=== PATIENT | female | born 1995 | race African-American/Black ===

== ENCOUNTER 2019-04-12 20:15 | Emergency (ER) | payer BC ==
[2019-04-12 20:46] LABS: Urine Appearance Clear; Urine Bacteria 1+ (Absent); Urine Bilirubin Negative (Negative); Urine Blood 2+ (Negative); Urine Color Yellow; Urine Glucose Negative (Negative); Urine Ketones Negative (Negative); Urine Nitrite Negative (Negative); Urine Protein Negative (Negative); Urine Red Blood Cell 2+(6-10/hpf) (Absent); Urine Specific Gravity 1.009 (1.010-1.030); Urine Squamous Epithelial Cell Present (Absent); Urine Urobilinogen Negative (Negative); Urine White Blood Cell Trace(0-5/hpf) (Absent)
[2019-04-12] MEDS ORDERED: Ketorolac INJ* 30 MG/ML 1 ML VIAL IV ONE (22:42)
[2019-04-12] MEDS ORDERED: NS 0.9% 1000 ML** 1,000 ML IV ONE (22:42)
--- NOTE | 2019-04-12 22:49 | ED ---
GI/ HPI - HPI Summary HPI Summary: This patient is a 23 year old F with a hx of PCOS presenting to ED with a chief complaint of bilateral flank pain since 3 days ago. Patient reports hematuria on 04/08/19 and dysuria. She reports bilateral flank pain. No PMHx of kidney stones, but FHx of kidney stones. Patient had similar pain two years ago when she was taking an oral medication for BV. The patient rates the pain 8/10 in severity. Patient denies vomiting, fever, abnormal vaginal bleeding/discharge, or pelvic pain. Patients last period was on 03/24/19. She is on control. - History of Current Complaint Chief Complaint: EDUrogenitalProblems Time Seen by Provider: 04/12/19 22:15 Stated Complaint: KIDNEY PAIN PER PT Hx Obtained From: Patient Onset/Duration: Started Days Ago - 3 days ago, Still Present Timing: Constant, Lasting Days - Since 3 days ago Severity: Severe Current Severity: Severe Pain Intensity: 8 Location of Pain: Flank - Bilateral Associated Signs and Symptoms: Positive: Hematuria, Flank Pain. Negative: Vomiting, Fever Additional Signs & Symptoms: Negative: Vaginal Bleeding, Vaginal Discharge Aggravating Factor(s): Nothing Alleviating Factor(s): Nothing - Allergy/Home Medications Allergies/Adverse Reactions: Allergies Allergy/AdvReac Type Severity Reaction Status Date / Time No Known Allergies Allergy Verified 04/12/19 20:21 PMH/Surg Hx/FS Hx/Imm Hx Endocrine/Hematology History: Reports: Hx Diabetes, Hx Thyroid Disease History: Reports: Other Problems/Disorders - PCOS Denies: Hx Kidney Stones - Surgical History Surgery Procedure, Year, and Place: denies Infectious Disease History: No Infectious Disease History: Denies: Traveled Outside the [place] in Last 30 Days - Family History Known Family History: Positive: Diabetes, Renal Disease - Kidney stones - Social History Alcohol Use: None Hx Substance Use: No Substance Use Type: Reports: None Hx Tobacco Use: No Smoking Status (MU): Never Smoked Tobacco Review of Systems Negative: Fever Negative: Vomiting Genitourinary: Negative - Abnormal vaginal bleeding/discharge Positive: flank pain, hematuria All Other Systems Reviewed And Are Negative: Yes Physical Exam - Summary Physical Exam Summary: Constitutional: Well-developed, Well-nourished, Alert. (-) Distressed Skin: Warm, Dry HENT: Normocephalic; Atraumatic Eyes: Conjunctiva normal Neck: Musculoskeletal ROM normal neck. (-) JVD, (-) Stridor, (-) Nuchal rigidity Cardio: Rhythm regular, tachycardic; Intact distal pulses; Radial pulses are 2+ and symmetric (-) Murmur Pulmonary/Chest wall: Effort normal. (-) Respiratory distress, (-) Wheezes, (-) Rales Abd: Flank tenderness left greater than right Musculoskeletal: (-) Edema Lymph: (-) Cervical adenopathy Neuro: Alert, Oriented x3 Psych: Mood and affect Normal Triage Information Reviewed: Yes Vital Signs On Initial Exam: Initial Vitals Temp Pulse Resp BP Pulse Ox 98.0 F 119 18 131/79 98 04/12/19 20:18 04/12/19 20:18 04/12/19 20:18 04/12/19 20:18 04/12/19 20:18 Vital Signs Reviewed: Yes Diagnostics - Vital Signs Vital Signs Temp Pulse Resp BP Pulse Ox 04/12/19 20:18 98.0 F 119 18 131/79 98 - Laboratory Lab Results: Lab Results 04/12/19 Range/Units 20:28 Urine Color Yellow Urine Appearance Clear Urine pH 6.0 (5-9) Ur Specific [place] 1.009 L (1.010-1.030) Urine Protein Negative (Negative) Urine Ketones Negative (Negative) Urine Blood 2+ A (Negative) Urine Nitrate Negative (Negative) Urine Bilirubin Negative (Negative) Urine Urobilinogen Negative (Negative) Ur Leukocyte Esterase Trace A (Negative) Urine WBC (Auto) Trace(0-5/hpf) (Absent) Urine RBC (Auto) 2+(6-10/hpf) A (Absent) Ur Squamous Epith Cells Present A (Absent) Urine Bacteria 1+ A (Absent) Urine Glucose Negative (Negative) Result Diagrams: 04/12/19 22:51 04/12/19 22:51 Lab Statement: Any lab studies that have been ordered have been reviewed, and results considered in the medical decision making process. - CT A/P CT Interpretation Completed By: Radiologist Summary of CT Findings: No CT findings to correlate with patient's symptomatology. Specifically no obstructing renal or ureteral calculi. Dr. Harry has reviewed this radiology report. Re-Evaluation - Re-Evaluation First Eval Change: Improved - HR down to 90. CT scan w no evidence of kidney stone or pyelonephritis, will discharge on Keflex twice a day for 5 days GIGU Course/Dx - Course Course Of Treatment: 22-year-old female who presents with dysuria and bilateral flank pain. - Physical exam with right flank pain, VS mild tachycardia, afebrile. Check labs including a CBC to assess for infection, urinalysis, . Patient has a family history of kidney stones unsure if she has had any, given the hematuria on her labs, concern for stone versus infection. UA w trace LE, WBC 13. Check a CT scan to rule out kidney stone, if negative will be discharged home on antibiotics for UTI. - Diagnoses Provider Diagnoses: UTI (urinary tract infection) Discharge ED - Sign-Out/Discharge Documenting (check all that apply): Patient Departure - Discharge Patient Received Moderate/Deep Sedation with Procedure: No - Discharge Plan Condition: Stable Disposition: HOME Prescriptions: Cephalexin CAP* [Keflex CAP*] 500 mg PO BID 5 Days #10 cap Patient Education Materials: Dysuria (ED) Referrals: Care [facility] [Outside] Additional Instructions: You were seen in the emergency department for flank pain and dysuria. Your CT scan did not show any evidence of kidney stones or kidney infection. Please take Keflex twice a day for 5 days. If any studies were not completed at the time of discharge you will be called with the relevant results. Please follow up with your primary care doctor in next 2-3 days and return to emergency department for worsening or concerning symptoms. - Billing Disposition and Condition Condition: STABLE Disposition: Home - Attestation Statements Document Initiated by Shana: Yes Documenting Scribe: Dennis Terry Provider For Whom Shana is Documenting (Include Credential): Jaymie Harry MD Scribe Attestation: IDennis, scribed for Jaymie Harry MD on 04/13/19 at 0203. Scribe Documentation Reviewed: Yes Provider Attestation: The documentation as recorded by the Dennis clarke accurately reflects the service I personally performed and the decisions made by me, Jaymie Harry MD Status of Scribe Document: Viewed
[2019-04-12 23:00] LABS: ABS Basophils 0.1 10^3/ul (0-0.2); ABS Eosinophils 0.1 10^3/ul (0-0.6); ABS Lymphocytes 4.6 10^3/ul (1.0-4.8); ABS Monocytes 0.7 10^3/ul (0-0.8); ABS Neutrophils 7.8 10^3/ul (1.5-7.7); Hematocrit 36 % (35-47); Hemoglobin 12.2 g/dL (12.0-16.0); Lymphocyte % 34.4 %; Mean Corpuscular HGB Conc 34 g/dL (31-36); Mean Corpuscular Hemoglobin 29 pg (27-31); Mean Corpuscular Volume 87 fL (80-97); Mean Platelet Volume 7.7 fL (7.4-10.4); Platelet Count 425 10^3/uL (150-450); Red Blood Count 4.18 10^6 /uL (3.70-4.87); Red Cell Distribution Width 15 % (10-15); White Blood Count 13.4 10^3/uL (3.5-10.8)
[2019-04-12 23:18] LABS: ALT 12 U/L (7-52); Albumin/Globulin Ratio 1.5 (1-3); Alkaline Phosphatase 70 U/L (34-104); BUN/Creatinine Ratio 8.3 (8-20); Blood Urea Nitrogen 7 mg/dL (6-24); CO2 Carbon Dioxide 28 mmol/L (22-32); Calcium 9.2 mg/dL (8.6-10.3); Chloride 98 mmol/L (101-111); EGFR African American 103.6 (>60); EGFR Non-African American 85.6 (>60); Globulin 2.7 g/dL (2-4); Glucose 106 mg/dL (70-100); Sodium 128 mmol/L (135-145); Total Protein 6.7 g/dL (6.4-8.9)
[2019-04-12 23:25] LABS: HCG Pregnancy < 0.60 mIU/mL
[2019-04-12 23:32] LABS: AST 15 U/L (13-39); Anion Gap 2 mmol/L (2-11); Potassium 4.6 mmol/L (3.5-5.0)
[2019-04-12] MEDS ORDERED: Iodixanol* (CONTRAST) 320 MG/ML 100 ML SDV IV ONE (23:33)
[2019-04-12] MEDS ORDERED: cefTRIAXone(*) 2 GM in NS 0.9% 100 ML* 100 ML IVPB ONE (23:36)
[2019-04-12] MEDS ORDERED: cefTRIAXone(*) 1 GM in NS 0.9% 50 ML* 50 ML IVPB ONE (23:38)
[2019-04-13 02:05] VITALS: BP 104/79
== END 2019-04-13 02:05 | disposition home or self-care (01) ==
LOC: ED 20:15
DX: N39.0 Urinary tract infection, site not specified (principal); R10.84 Generalized abdominal pain; R31.9 Hematuria, unspecified; E11.9 Type 2 diabetes mellitus without complications; E03.9 Hypothyroidism, unspecified
CPT/HCPCS: 36415; 74177; 80053; 81003; 81015; 84702; 85025; 87086; 87088; 96365; 96375; 99283; J0696; J1885; Q9967